=== PATIENT | male | born 1965 ===

== ENCOUNTER 2023-02-05 09:56 | Observation (INO) | payer OTHER, SELFPAY ==
[2023-02-05] VITALS (35 sets, daily range): BP systolic 117–148; BP diastolic 63–98; PULSE 65–89; RESP 16–18; TEMP 36.6–37.2; O2SAT 96–100; BMI 25.8; BMI 26.7
--- NOTE | 2023-02-05 10:26 | ED.NURSE ---
EKG completed and handed to
--- NOTE | 2023-02-05 10:37 | CRLHL7_ITS ---
For Patients: As a result of the Cures Act, medical imaging exams and procedure reports are released immediately into your electronic medical record. You may view this report before your referring provider. If you have questions, please contact your health care provider. INDICATION: SOB INDICATION: Shortness of breath. TECHNIQUE: Chest 2 views. COMPARISON: None FINDINGS: Cardiovascular and mediastinum: Heart size and vasculature are normal in caliber and appearance. Mediastinum is within normal limits. Lungs and pleural spaces: Lungs are clear. No sign of infiltrate or mass. No sign of pleural effusion. No pneumothorax. Bones and soft tissues: No significant findings. IMPRESSION: Lungs are clear. Dictated by Shayan Alvarado MD @ 02/05/2023 11:43:06 AM Dictated by: Shayan Alvarado MD @ 02/05/2023 11:43:15 (Electronically Signed)
--- NOTE | 2023-02-05 10:38 | CRLHL7_ITS ---
For Patients: As a result of the Century Cures Act, medical imaging exams and procedure reports are released immediately into your electronic medical record. You may view this report before your referring provider. If you have questions, please contact your health care provider. INDICATION: Acute stroke. TECHNIQUE: CTA neck with contrast bolus tracking, 3D angiographic rendering using maximum intensity projection (MIP) and images permanently archived. FINDINGS: There is no significant carotid artery stenosis or dissection. There is no significant vertebral artery stenosis or dissection. The soft tissues of the neck are within normal limits. Degenerative changes are noted in the cervical spine. IMPRESSION: No significant carotid or vertebral artery stenosis or dissection. Please note that all CT scans at this facility use dose modulation, iterative reconstruction, and/or weight-based dosing when appropriate to reduce radiation dose to as low as reasonably achievable. Dictated by John Kendall MD @ 02/05/2023 12:31:54 PM (Electronically Signed)
--- NOTE | 2023-02-05 10:38 | CRLHL7_ITS ---
For Patients: As a result of the Century Cures Act, medical imaging exams and procedure reports are released immediately into your electronic medical record. You may view this report before your referring provider. If you have questions, please contact your health care provider. INDICATION: Nonacute stroke-like symptoms TECHNIQUE: Noncontrast axial CT of the head. Coronal and sagittal reformats. Bone and soft tissue algorithms. COMPARISON: In 10/2017 FINDINGS: The ventricles and cortical sulci appear age-appropriate. No midline shift or mass effect. No acute intracranial hemorrhage or extra-axial fluid collection. Desir-white matter differentiation is grossly maintained. White matter attenuation is within normal limits. Intracranial vessels are unremarkable for technique. Midline structures are unremarkable. Bony calvarium appears grossly intact. Lobulated mucosal thickening throughout the left greater than right maxillary sinuses, with scattered mucosal thickening throughout the ethmoid air cells and left sphenoid sinus. No air-fluid level or mastoid effusion. Unremarkable orbits. IMPRESSION: No CT evidence of acute intracranial abnormality. Please note that all CT scans at this facility use dose modulation, iterative reconstruction, and/or weight-based dosing when appropriate to reduce radiation dose to as low as reasonably achievable. Dictated by Idalia Klein MD @ 02/05/2023 11:25:10 AM (Electronically Signed)
--- NOTE | 2023-02-05 10:38 | CRLHL7_ITS ---
For Patients: As a result of the Century Cures Act, medical imaging exams and procedure reports are released immediately into your electronic medical record. You may view this report before your referring provider. If you have questions, please contact your health care provider. INDICATION: Acute stroke. TECHNIQUE: CTA head with contrast bolus tracking, 3D angiographic rendering using maximum intensity projection (MIP) and images permanently archived. FINDINGS: There is normal opacification of the intracranial vasculature. There is no large vessel occlusion. No aneurysm is identified. IMPRESSION: Unremarkable head CTA. No large vessel occlusion. Please note that all CT scans at this facility use dose modulation, iterative reconstruction, and/or weight-based dosing when appropriate to reduce radiation dose to as low as reasonably achievable. Dictated by John Kendall MD @ 02/05/2023 12:30:25 PM (Electronically Signed)
--- NOTE | 2023-02-05 10:50 | ED_ITS ---
HPI - General Adult General Chief complaint: Unspecified Complaint, Adult Stated complaint: lightheaded, L arm pain/tingling Time Seen by Provider: 02/05/23 10:17 Source: patient Mode of arrival: ambulatory Limitations: no limitations History of Present Illness HPI narrative: 58-year-old male presenting today with concerns about not feeling well. Patient states that for the last couple of weeks he has felt a little lightheaded. He describes this as almost feeling like he is not clear. This sensation comes and goes and lingers anywhere from minutes to a couple of hours. He states that in the last 2 days this sensation has been more constant. Also on the last 2 days he has developed a mild discomfort over the left shoulder that radiates down the left arm all the way to the fingertips. Fingertips feel numb. States that a few days ago he had an episode over he felt like he was having a hard time getting words out, he does not think anyone noticed but he felt a difficult time with word finding. Every now and then when he is walking he feels a little bit off balance, has never fallen or ran into anything. He is unsure if he favors 1 side or the other. He has a very mild headache that is constant. Denies any ringing in his ears. No slurred speech. No weakness in any extremity. He denies any recent illness. Past medical history is significant for hyperlipidemia, patient is supposed to b e on Lipitor but has not taken it for a while. Denies any other medical problems. He does not use tobacco products. He does have a family history significant for coronary artery disease in multiple members of the family having heart attacks anywhere from their 40s to 60s. This includes his father, paternal grandfather, brother and a cousin. 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 Related Data Home Medications Medication Instructions Recorded Confirmed atorvastatin 20 mg tablet 20 mg PO DAILY 02/05/23 02/05/23 Allergies Allergy/AdvReac Type Severity Reaction Status Date / Time No Known Drug Allergies Allergy Verified 02/05/23 10:21 Review of Systems Status of ROS: Reports: 10 or more systems reviewed and unremarkable except as noted in History and below PFSH PFS Social History Smoking Status: Never smoker Non-prescribed substance use: denies use Exam Narrative: Exam Narrative: Well-nourished well-developed patient in no acute distress. Alert and oriented. Answers questions appropriately. Mood and affect are appropriate. Thoughts are goal oriented and rational. No tangential or magical thinking noted. Patient speaks in full sentences without needing to catch their breath. HEENT: Normocephalic atraumatic. Pupils are equally round reactive to light. Extraocular muscles are intact. Conjunctivae are moist without any icterus noted. Moist mucous membranes. Posterior pharynx is normal. Neck is soft without any lymphadenopathy or thyromegaly. No masses are appreciated. Cardiovascular: Heart is regular rate and rhythm S1 and S2 are present without any murmurs. Lungs: Clear to auscultation bilaterally no wheezes rhonchi or rales are appreciated. Patient takes deep breaths without any discomfort. Abdomen: Soft and nontender nondistended with normal bowel sounds. No guarding or rebound. No masses or organomegaly appreciated. Extremities: Bilateral lower extremities are without edema. Normal DP and PT pulses. Skin: Well perfused without any obvious rashes. Strength is 5/5 of the upper and lower extremities. Reflexes are 2+ and symmetric at the knees. Romberg sign is negative. Cranial nerves 3-12 are normal. There is no nystagmus either horizontally or vertically. Gait is normal. Const: Vital Signs, click to edit/add: Vital Signs - 24 hr 02/05/23 10:21 02/05/23 10:26 02/05/23 10:30 Temperature 99 F Pulse Rate 73 89 Pulse Rate [Pulse Oximeter] 80 Respiratory Rate 18 Blood Pressure Blood Pressure [Ri ght Upper Arm] 141/98 H Pulse Oximetry 100 99 98 Oxygen Delivery Me thod Room Air 02/05/23 10:32 02/05/23 10:37 02/05/23 10:55 Temperature Pulse Rate 88 79 Pulse Rate [Pulse Oximeter] Respiratory Rate Blood Pressure 148/91 H Blood Pressure [Ri ght Upper Arm] Pulse Oximetry 99 97 97 Oxygen Delivery Pa thod 02/05/23 11:11 02/05/23 11:15 02/05/23 11:30 Temperature Pulse Rate 79 74 66 Pulse Rate [Pulse Oximeter] Respiratory Rate Blood Pressure Blood Pressure [Ri ght Upper Arm] Pulse Oximetry 98 97 97 Oxygen Delivery Pa thod 02/05/23 11:32 02/05/23 11:45 02/05/23 12:00 Temperature Pulse Rate 68 74 69 Pulse Rate [Pulse Oximeter] Respiratory Rate Blood Pressure 126/78 Blood Pressure [Ri ght Upper Arm] Pulse Oximetry 97 98 99 Oxygen Delivery Me thod 02/05/23 12:03 02/05/23 12:15 02/05/23 12:30 Temperature Pulse Rate 67 70 67 Pulse Rate [Pulse Oximeter] Respiratory Rate Blood Pressure 117/96 H Blood Pressure [Ri ght Upper Arm] Pulse Oximetry 97 97 98 Oxygen Delivery Me thod 02/05/23 12:32 02/05/23 12:45 02/05/23 13:00 Temperature Pulse Rate 73 70 74 Pulse Rate [Pulse Oximeter] Respiratory Rate Blood Pressure 119/91 H Blood Pressure [Ri ght Upper Arm] Pulse Oximetry 97 97 97 Oxygen Delivery Me thod 02/05/23 13:02 02/05/23 13:15 02/05/23 13:30 Temperature Pulse Rate 73 69 79 Pulse Rate [Pulse Oximeter] Respiratory Rate Blood Pressure 123/87 Blood Pressure [Ri ght Upper Arm] Pulse Oximetry 96 96 97 Oxygen Delivery Me thod 02/05/23 13:31 02/05/23 13:45 Temperature Pulse Rate 75 83 Pulse Rate [Pulse Oximeter] Respiratory Rate Blood Pressure 127/83 Blood Pressure [Ri ght Upper Arm] Pulse Oximetry 98 96 Oxygen Delivery Me thod Course Course ED Course: Life-threatening Differential diagnosis includes at this time: Stroke-like symptoms, coronary artery disease, spinal lesion. Dehydration, electrolyte abnormality, thyroid dysfunction, shingles could also potentially cause similar symptoms. EKG, read by me, shows normal sinus rhythm with a rightward access, pulse 86. Head CT followed by head CTA and neck CTA were unremarkable. Blood work was unremarkable aside from mild anemia with a hemoglobin of 12.5. I did consult with Neurology, Dr. Moe at [facility]. We discussed follow-up testing which would include a brain and cervical spine MRI. We discussed outpatient versus inpatient testing: [place] that outpatient testing would take too long given the fact that his symptoms have been progressing over the last 2-3 days. [place] the safest course of action would be to admit the patient and have the imaging done the following day. This way we can also monitor if his symptoms progress over the next 24 hours. Vital Signs Vital signs: Initial Vital Signs Temperature 99 F 02/05/23 10:21 Temperature Source Temporal Artery Scan 02/05/23 10:21 Pulse Rate 80 02/05/23 10:21 Respiratory Rate 18 02/05/23 10:21 Blood Pressure 141/98 H 02/05/23 10:21 Blood Pressure Mean 112 H 02/05/23 10:21 Pulse Oximetry 100 02/05/23 10:21 Oxygen Delivery Method Room Air 02/05/23 10:21 Vital Signs Temperature 99 F 02/05/23 10:21 Pulse Rate 80 02/05/23 10:21 Respiratory Rate 18 02/05/23 10:21 Blood Pressure 141/98 H 02/05/23 10:21 Pulse Oximetry 100 02/05/23 10:21 Oxygen Delivery Method Room Air 02/05/23 10:21 Temperature 99 F 02/05/23 10:21 Pulse Rate 83 02/05/23 13:45 Respiratory Rate 18 02/05/23 10:21 Blood Pressure 127/83 02/05/23 13:31 Pulse Oximetry 96 02/05/23 13:45 Oxygen Delivery Method Room Air 02/05/23 10:21 Medical Decision Making MDM Narrative Medical decision making narrative: 58-year-old male with stroke-like symptoms. differential diagnosis at this time include stroke, inflammatory disease, Guillain-[place], cervical spine lesion. Patient will be admitted at this time for further management and brain and cervical spine MRI in the morning. Patient also has a slightly low hemoglobin 12.5. Lab Data Lab results reviewed: Yes I reviewed the patient's lab results Labs: Lab Results 02/05/23 02/05/23 Range/Units 10:54 11:58 WBC 4.09 L (4.50-11.00) K/uL RBC 4.61 (4.30-5.90) m/uL Hgb 12.5 L (13.5-17.5) gm/dL Hct 38.5 (37.0-53.0) % MCV 84 (80-100) fL MCH 27 (26-34) pg MCHC 33 (32-36) gm/dL RDW Coeff of Anna 13.7 (11.5-15.5) % Plt Count 252 (140-440) K/uL Neut % (Auto) 63.5 (42.0-72.0) % Lymph % (Auto) 22.5 (20-44) % [place] % (Auto) 9.3 (0.0-11.0) % Eos % (Auto) 3.7 (0.0-7.0) % Baso % (Auto) 1.0 (0.0-3.0) % Neut # (Auto) 2.60 (1.7-7.0) K/uL Lymph # (Auto) 0.90 (0.90-2.90) K/uL [place] # (Auto) 0.40 (0.00-0.90) K/UL Eos # (Auto) 0.20 (0.00-0.50) K/uL Baso # (Auto) 0.00 (0.00-0.30) K/uL Abs Immat Gran (auto) 0.00 (0.00-0.30) K/uL Imm/Tot Granulo (auto) 0.0 % Sodium 139 (135-149) mmol/L Potassium 3.8 (3.6-5.1) mmol/L Chloride 107 (96-114) mmol/L Carbon Dioxide 25 (20-32) mmol/L Anion Gap 7 (7-15) mEq/L BUN 12 (7-30) mg/dL Creatinine 0.7 (0.5-1.5) mg/dL Estimated Creat Clear 105.07 Estimated GFR 107 ml/min Glucose 98 (60-115) mg/dL Calcium 8.9 (8.4-10.6) mg/dL Total Bilirubin 0.5 (0.1-1.5) mg/dL Direct Bilirubin 0.0 (0.0-0.5) mg/dL AST 35 (12-35) U/L ALT 21 (4-50) U/L Alkaline Phosphatase 49 (40-150) U/L Troponin I < 0.01 L (0.01-0.04) ng/mL C-Reactive Protein < 0.5 L (0.5-1.0) mg/dL Total Protein 7.4 (6.0-8.3) g/dL Albumin 4.2 (3.3-5.0) g/dL TSH 0.710 (0.270-4.20) uIU/mL Urine Color Yellow (Yellow) Urine Appearance Clear (Clear) Urine pH 7.0 (5.0-8.5) Ur Specific Taylor 1.015 (1.000-1.030) Urine Protein Negative (Negative) Urine Glucose (UA) Negative (Negative) Urine Ketones Negative (Negative) Urine Blood Negative (Negative) Urine Nitrite Negative (Negative) Urine Bilirubin Negative (Negative) Urine Urobilinogen 0.2 (0.2-1.0) Ur Leukocyte Esterase Negative (Negative) Urine RBC 0-2 (0-2) Urine WBC 0-2 (0-5) Ur Squamous Epith Cells None (None-Few) Urine Bacteria None (None) SARS-CoV-2 (PCR) Negative SARS-CoV-2 (Negative) Monoscreen Negative (Negative) POC Troponin I 0.00 L (0.01-0.04) ng/ml Imaging Data CT scan - head: Attestation: I have reviewed the pertinent imaging results. Radiologist's impression: Noncontrast axial CT of the head. Coronal and sagittal reformats. Bone and soft tissue algorithms. COMPARISON: In 10/2017 FINDINGS: The ventricles and cortical sulci appear age-appropriate. No midline shift or mass effect. No acute intracranial hemorrhage or extra-axial fluid collection. Desir-white matter differentiation is grossly maintained. White matter attenuation is within normal limits. Intracranial vessels are unremarkable for technique. Midline structures are unremarkable. Bony calvarium appears grossly intact. Lobulated mucosal thickening throughout the left greater than right maxillary sinuses, with scattered mucosal thickening throughout the ethmoid air cells and left sphenoid sinus. No air-fluid level or mastoid effusion. Unremarkable orbits. IMPRESSION: No CT evidence of acute intracranial abnormality. Chest x-ray: Attestation: I have reviewed the pertinent imaging results. Radiologist's impression: Chest 2 views. COMPARISON: None FINDINGS: Cardiovascular and mediastinum: Heart size and vasculature are normal in caliber and appearance. Mediastinum is within normal limits. Lungs and pleural spaces: Lungs are clear. No sign of infiltrate or mass. No sign of pleural effusion. No pneumothorax. Bones and soft tissues: No significant findings. IMPRESSION: Lungs are clear. CTA head: Attestation: I have reviewed the pertinent imaging results. Radiologist's impression: TECHNIQUE: CTA head with contrast bolus tracking, 3D angiographic rendering using maximum intensity projection (MIP) and images permanently archived. FINDINGS: There is normal opacification of the intracranial vasculature. There is no large vessel occlusion. No aneurysm is identified. IMPRESSION: Unremarkable head CTA. No large vessel occlusion. CTA neck: Attestation: I have reviewed the pertinent imaging results. Radiologist's impression: TECHNIQUE: CTA neck with contrast bolus tracking, 3D angiographic rendering using maximum intensity projection (MIP) and images permanently archived. FINDINGS: There is no significant carotid artery stenosis or dissection. There is no significant vertebral artery stenosis or dissection. The soft tissues of the neck are within normal limits. Degenerative changes are noted in the cervical spine. IMPRESSION: No significant carotid or vertebral artery stenosis or dissection. Discharge Plan Discharge Clinical Impression: Stroke-like symptoms Patient Disposition: Admitted As Observation Condition: Stable Prescriptions: No Action atorvastatin 20 mg tablet 20 mg PO DAILY Follow Up/Referrals: Ac Jackman MD [Primary Care Provider] -
[2023-02-05 11:06] LABS: Eosinophils Percent Auto 3.7 % (0.0-7.0); Hematocrit 38.5 % (37.0-53.0); Hemoglobin* 12.5 gm/dL (13.5-17.5); Lymphocytes Percent Auto 22.5 % (20-44); Mean Corpuscular HGB Conc 33 gm/dL (32-36); Mean Corpuscular Hemoglobin 27 pg (26-34); Mean Corpuscular Volume 84 fL (80-100); Monocytes Percent Auto 9.3 % (0.0-11.0); Neutrophils Percent Auto 63.5 % (42.0-72.0); Platelet Count* 252 K/uL (140-440); RDW Coefficient of Variation % 13.7 % (11.5-15.5); Red Blood Count 4.61 m/uL (4.30-5.90); White Blood Count* 4.09 K/uL (4.50-11.00)
[2023-02-05 11:09] LABS: Slide Review Reflex No
[2023-02-05 11:17] LABS: Mono Screen* Negative (Negative)
[2023-02-05 11:40] LABS: Albumin* 4.2 g/dL (3.3-5.0); Chloride* 107 mmol/L (96-114)
[2023-02-05 11:41] LABS: Potassium* 3.8 mmol/L (3.6-5.1); Sodium* 139 mmol/L (135-149)
[2023-02-05 11:42] LABS: SARS PCR* Negative SARS-CoV-2 (Negative)
[2023-02-05 11:43] LABS: Creatinine* 0.7 mg/dL (0.5-1.5); Est. Creatinine Clearance* 105.07; Estimated Glomerular Filt Rate 107 ml/min
[2023-02-05 11:44] LABS: Alanine Aminotransferase* 21 U/L (4-50); Alkaline Phosphatase* 49 U/L (40-150); Anion Gap 7 mEq/L (7-15); Aspartate Amino Transferase* 35 U/L (12-35); Bilirubin Total* 0.5 mg/dL (0.1-1.5); Blood Urea Nitrogen* 12 mg/dL (7-30); Calcium* 8.9 mg/dL (8.4-10.6); Carbon Dioxide* 25 mmol/L (20-32); Glucose* 98 mg/dL (60-115); Total Protein* 7.4 g/dL (6.0-8.3)
[2023-02-05 11:47] LABS: C Reactive Protein* < 0.5 mg/dL (0.5-1.0)
[2023-02-05 12:06] LABS: Appearance Urine Clear (Clear); Bilirubin Urine Negative (Negative); Blood Urine Negative (Negative); Color Urine Yellow (Yellow); Glucose Urine Negative (Negative); Ketones Urine Negative (Negative); Leukocyte Esterase Urine Negative (Negative); Nitrite Urine Negative (Negative); Protein Urine Negative (Negative); Specific Gravity Urine 1.015 (1.000-1.030); Urobilinogen Urine 0.2 (0.2-1.0)
[2023-02-05 12:13] LABS: Troponin I* < 0.01 ng/mL (0.01-0.04)
[2023-02-05 12:14] LABS: RBC Urine 0-2 (0-2); WBC Urine 0-2 (0-5)
--- NOTE | 2023-02-05 15:30 | PM.IMHP1 ---
Hospitalist- H&P: HPI History of Present Illness Time Seen by Provider: 14:45 Date Seen: 02/05/23 Chief complaint: lightheaded, L arm pain/tingling Narrative: Alec Mosher is a 58 year old man who presents with escalating intermittent left shoulder discomfort radiating down to left hand with numbness for the past couple days, in the setting of him having episodes of lightheadedness often on for the past 4 weeks. Has had no recent trauma or injury. 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 Has had no loss of function of his left upper extremity or anything else. Regarding the lightheaded mid he has had this for the better part of the last 4 weeks often on. Seems to be getting more common and lasts longer. Feels like he is off balance when he walks at times although he has had no falls. Acknowledges becoming more anxious and frightened about this condition. As I review his past medical history is had similar complaints in the past. He and his acknowledge a lot of stress in his life related to his job as well as the fact that his 's health has been challenging over the last 1-2 years. In our emergency department CT scan of head was unremarkable. CT angiogram of head and neck or also unremarkable. Discussion undertaken with neurologist who recommended admission for observation and obtaining MRI of head and neck tomorrow if possible. Review of Systems Status of ROS: Reports: 10 or more systems reviewed and unremarkable except as noted in History and below Narrative: For the last couple of years he has been working a position which just ordinarily filled by 2 people. This has been difficult for him. His during the same interim of time has had multiple challenges with her physical health. He has been more anxious about these various stressors in his life. No recent travel, injury, blood loss of any sort. No recent fevers, rigors, diaphoresis. No recent myalgias or arthralgias. Denies dyspnea at rest, paroxysmal nocturnal dyspnea, orthopnea. Denies chest heaviness, pressure, tightness, or pain. No syncope or near syncope. Denies abdominal discomforts, diarrhea constipation. Denies dyspepsia, dysphagia, odynophagia. Denies cough, or URI symptoms. Denies any other focal motor neurologic deficits. [facility] Medical History (Updated 02/05/23 @ 15:46 by Ck Cabello MD) Vitamin D deficiency ?E55.9 - Vitamin D deficiency, unspecified (ICD-10) Chronic insomnia ?F51.04 - Psychophysiologic insomnia (ICD-10) History of muscle pain ?Z87.39 - Personal history of other diseases of the musculoskeletal system and connective tissue (ICD-10) History of joint pain ?Z87.39 - Personal history of other diseases of the musculoskeletal system and connective tissue (ICD-10) Family history of coronary artery disease ?Z82.49 - Family history of ischemic heart disease and other diseases of the circulatory system (ICD-10) Bulging lumbar disc ?M51.36 - Other intervertebral disc degeneration, lumbar region (ICD-10) Hyperlipidemia ?E78.5 - Hyperlipidemia, unspecified (ICD-10) Family History (Updated 02/05/23 @ 15:26 by Ck Cabello MD) Paternal Grandfather Coronary artery disease Father Coronary artery disease Brother Coronary artery disease High cholesterol Mother Coronary artery disease Social History (Updated 02/05/23 @ 15:30 by Ck Cabello MD) Narrative: . Lives with . No children. 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 Designates , Loreta, as power of criminal defense attorney for health should that be required. Full resuscitation efforts in event of cardiopulmonary demise but does not want to be kept alive in a vegetative state. Dr. Ac Jackman is his primary technical healthcare consultant. Smoking Status: Never smoker Non-prescribed substance use: denies use Meds Home Medications and Allergies Home Medications Medication Instructions Recorded Confirmed Type atorvastatin 20 mg tablet 20 mg PO DAILY 02/05/23 02/05/23 History Allergies Allergy/AdvReac Type Severity Reaction Status Date / Time No Known Drug Allergies Allergy Verified 02/05/23 10:21 Exam Narrative: Exam Narrative: I examine him in the emergency department. He appears comfortable and in no acute distress. Vision and hearing are normal. Alert, oriented to self, place, time, situation. From the, articulate, cooperative. No focal motor neurologic deficits in upper lower extremities. Full strength. Normal rapid alternating movements. Good balance. Independent in transfer, station, and gait. No tremor, asterixis, or ataxia. Cranial nerves 3-12 grossly normal. Pupils equally round and reactive to light and accommodation. Extraocular muscles are intact. Conjugate vision. No icterus. Neck is supple. Midline trachea. No head and neck lymphadenopathy. No JVD, hepatojugular reflux, or carotid bruits. Lungs are clear to auscultation without wheezing, rhonchi, or rales. Heart tones with regular rhythm, normal S1-S2, without murmur, gallop, or rub. Abdomen with active bowel sounds, soft, nontender. No organomegaly masses. Independent transfer, station, and gait. Full range of motion of all joints. Const: Vital Signs, click to edit/add: Vital Signs - 24 hr 02/05/23 10:21 02/05/23 10:26 02/05/23 10:30 Temperature 99 F Pulse Rate 73 89 Pulse Rate [Pulse Oximeter] 80 Respiratory Rate 18 Blood Pressure Blood Pressure [Ri ght Upper Arm] 141/98 H Pulse Oximetry 100 99 98 Oxygen Delivery Me thod Room Air 02/05/23 10:32 02/05/23 10:37 02/05/23 10:55 Temperature Pulse Rate 88 79 Pulse Rate [Pulse Oximeter] Respiratory Rate Blood Pressure 148/91 H Blood Pressure [Ri ght Upper Arm] Pulse Oximetry 99 97 97 Oxygen Delivery Me thod 02/05/23 11:11 02/05/23 11:15 02/05/23 11:30 Temperature Pulse Rate 79 74 66 Pulse Rate [Pulse Oximeter] Respiratory Rate Blood Pressure Blood Pressure [Ri ght Upper Arm] Pulse Oximetry 98 97 97 Oxygen Delivery Me thod 02/05/23 11:32 02/05/23 11:45 02/05/23 12:00 Temperature Pulse Rate 68 74 69 Pulse Rate [Pulse Oximeter] Respiratory Rate Blood Pressure 126/78 Blood Pressure [Ri ght Upper Arm] Pulse Oximetry 97 98 99 Oxygen Delivery Me thod 02/05/23 12:03 02/05/23 12:15 02/05/23 12:30 Temperature Pulse Rate 67 70 67 Pulse Rate [Pulse Oximeter] Respiratory Rate Blood Pressure 117/96 H Blood Pressure [Ri ght Upper Arm] Pulse Oximetry 97 97 98 Oxygen Delivery Me thod 02/05/23 12:32 02/05/23 12:45 02/05/23 13:00 Temperature Pulse Rate 73 70 74 Pulse Rate [Pulse Oximeter] Respiratory Rate Blood Pressure 119/91 H Blood Pressure [Ri ght Upper Arm] Pulse Oximetry 97 97 97 Oxygen Delivery Me thod 02/05/23 13:02 02/05/23 13:15 02/05/23 13:30 Temperature Pulse Rate 73 69 79 Pulse Rate [Pulse Oximeter] Respiratory Rate Blood Pressure 123/87 Blood Pressure [Ri ght Upper Arm] Pulse Oximetry 96 96 97 Oxygen Delivery Me thod 02/05/23 13:31 02/05/23 13:45 02/05/23 14:00 Temperature Pulse Rate 75 83 76 Pulse Rate [Pulse Oximeter] Respiratory Rate Blood Pressure 127/83 Blood Pressure [Ri ght Upper Arm] Pulse Oximetry 98 96 98 Oxygen Delivery Me thod 02/05/23 14:02 02/05/23 14:15 02/05/23 14:30 Temperature Pulse Rate 82 85 88 Pulse Rate [Pulse Oximeter] Respiratory Rate Blood Pressure 135/85 Blood Pressure [Ri ght Upper Arm] Pulse Oximetry 97 96 98 Oxygen Delivery Me thod 02/05/23 14:32 02/05/23 14:56 02/05/23 15:00 Temperature Pulse Rate 79 79 89 Pulse Rate [Pulse Oximeter] Respiratory Rate Blood Pressure 139/94 H Blood Pressure [Ri ght Upper Arm] Pulse Oximetry 98 96 97 Oxygen Delivery Me thod Documenting provider has reviewed patient's vital signs: yes Hospitalist - H&P: Result Labs Labs: Short CBC 02/05/23 Range/Units 10:54 WBC 4.09 L (4.50-11.00) K/uL Hgb 12.5 L (13.5-17.5) gm/dL Hct 38.5 (37.0-53.0) % Plt Count 252 (140-440) K/uL BMP 02/05/23 10:54 Sodium 139 Potassium 3.8 Chloride 107 Carbon Dioxide 25 BUN 12 Creatinine 0.7 Glucose 98 Calcium 8.9 Cardiac Enzymes 02/05/23 Range/Units 10:54 Troponin I < 0.01 L (0.01-0.04) ng/mL Liver Function 02/05/23 Range/Units 10:54 Total Bilirubin 0.5 (0.1-1.5) mg/dL Direct Bilirubin 0.0 (0.0-0.5) mg/dL AST 35 (12-35) U/L ALT 21 (4-50) U/L Alkaline Phosphatase 49 (40-150) U/L Albumin 4.2 (3.3-5.0) g/dL Urine 02/05/23 Range/Units 11:58 Urine Color Yellow (Yellow) Urine Appearance Clear (Clear) Urine pH 7.0 (5.0-8.5) Ur Specific [place] 1.015 (1.000-1.030) Urine Protein Negative (Negative) Urine Glucose (UA) Negative (Negative) ECG ECG interpretation date: 02/05/23 Prior ECG tracings: not available for review Interpretation: Normal sinus rhythm without ischemic changes. Imaging CT scan - head: Attestation: I have reviewed the pertinent imaging results. Radiologist's impression: No acute abnormalities noted. CT angiogram of head also without any acute abnormalities. CT angiogram of neck also without any acute abnormalities. Assessment and Plan Assessment and plan (1) Dizziness, nonspecific: Problem comment: - our emergency department physician discussed case with neurologist who recommended admission for observation, MRI of head and cervical spine in the morning, and appropriate follow-up. Status: Acute (2) Left shoulder pain: Problem comment: - our emergency department physician discussed case with neurologist who recommended admission for observation, MRI of the cervical spine in the morning, and appropriate follow-up. - will obtain x-ray of the affected left shoulder. Status: Acute (3) Numbness and tingling of left hand: Problem comment: - see comments under left shoulder pain entry above Status: Acute Plan 1. I reviewed with patient and his . Answered their questions. 2. Recommended admission for observation which they are agreeable to. 3. Telemetry, neuro checks q.4, restart atorvastatin, initiate aspirin therapy. 4. Will hold off on physical therapy, occupational therapy, or speech therapy for now. 5. Patient agreeable to above stated plans and recommendations.
--- NOTE | 2023-02-05 15:54 | CRLHL7_ITS ---
For Patients: As a result of the Cures Act, medical imaging exams and procedure reports are released immediately into your electronic medical record. You may view this report before your referring provider. If you have questions, please contact your health care provider. INDICATION: Pain. TECHNIQUE: Three views. FINDINGS: There is no radiographically evident acute/displaced fracture/dislocation. Bone density appears normal. There is no intrinsic bone lesion identified. Dictated by Benitez Nuñez MD @ 02/05/2023 4:54:01 PM (Electronically Signed)
--- NOTE | 2023-02-05 18:56 | PC.NURSE ---
shift note: pt admit from ED @ 1515 via WC. pt up indept in ramso and room. pt stated upon admission slightly lightheaded when standing. vss stable. pt IV to LT AC intact. Pt denies pain. Pt rt eye jumping with movement side to side. Pt denies lt hand or shoulder numbness at admit.
[2023-02-05] MEDS: ACETAMINOPHEN 325 MG TABLET 650 MG PO (20:13)
[2023-02-05] MEDS: ENOXAPARIN 40 MG/0.4 ML INJ SUBCUT (20:13)
[2023-02-05] MEDS: SODIUM CHLORIDE 0.9 % (FLUSH) 10 ML SYRINGE 5 ML IVF (20:14)
[2023-02-05] MEDS: MELATONIN 3 MG TABLET 9 MG PO (22:08)
[2023-02-06 04:11] VITALS: BP 122/87; PULSE 73; RESP 16; TEMP 36.7; O2SAT 98
--- NOTE | 2023-02-06 05:21 | PC.NURSE ---
[id number]: Patient pleasant and cooperative. Reports mild headache at beginning of shift. Tylenol administered for relief. Neuros unremarkable. Denies dizziness, N/V. Independent in room. Eating and voiding.
[2023-02-06 07:01] LABS: Hemoglobin* 12.4 gm/dL (13.5-17.5)
[2023-02-06 07:06] VITALS: PULSE 80
[2023-02-06 07:07] LABS: Iron* 70 ug/dL (49-181)
[2023-02-06 07:16] LABS: Percent Iron Saturation 18 % (20-50); Total Iron Binding Capacity 392 ug/dL (261-462)
[2023-02-06 07:29] VITALS: BP 132/91; PULSE 73; RESP 18; TEMP 36.5; O2SAT 96
[2023-02-06 07:59] LABS: Vitamin B12* 392 pg/mL (243-894)
[2023-02-06] MEDS: ATORVASTATIN 10 MG TABLET 20 MG PO (08:59)
[2023-02-06] MEDS: ASPIRIN 81 MG TABLET EC PO (09:00)
[2023-02-06] MEDS: SODIUM CHLORIDE 0.9 % (FLUSH) 10 ML SYRINGE 5 ML IVF (09:00)
--- NOTE | 2023-02-06 11:02 | NUTR.NU ---
RDN with MD consult for hyperlipidemia and family history of CAD. Weight: no recent weight history. BMI is overweight at 26.0 kg/m2. Current diet order: low fat/low cholesterol. Meal intake is adequate, 100% x 2. RDN visited with patient whom reports he does not follow a diet at home, however he tries to hoose healthier foods including fruits, vegetables and limiting red meats. RDN offered diet education, however patient refused at this time. Patient did accept educational materials (Heart Heathy Nutrition Therapy and Heart Healthy Label Reading Tips from [employer]). RDN encouraged patient to let staff know if he has any questions or concerns. RDN's contact information was provided and patient was encouraged to call with questions.
--- NOTE | 2023-02-06 11:03 | REH.PT ---
Pt with no concerns for PT at this time. Reports that shoulder pain is improving and isn't that bad. IND with mobility. No balance concerns. Pt will be undergoing MRI this PM. If neg, recommend OP PT to address shoulder pain.
[2023-02-06 11:15] VITALS: BP 131/79; PULSE 71; RESP 18; TEMP 36.9; O2SAT 97
--- NOTE | 2023-02-06 12:16 | PM.DS1 ---
DS: Providers Provider Date Seen: 02/06/23 Date of admission: 02/05/23 15:21 Primary care physician: Ac Jackman MD Admitting Clinician: Michelle Ballard MD Attending Physician on discharge: Michelle Ballard MD Date of Discharge: 02/06/23 DS: Diagnosis Discharge Diagnosis (1) Left shoulder pain: Status: Acute Problem details: Left-handed patient reports intermittent left shoulder and left arm discomfort over the past few days. Nothing obviously triggers this and nothing obviously relieves it. - our emergency department physician discussed case with neurologist who recommended admission for observation, MRI of the cervical spine in the morning, and appropriate follow-up. He has had no left upper extremity weakness. He does note that he gets tingling in his left hand fingertips. (2) Dizziness, nonspecific: Status: Acute Problem details: Patient reports dizziness which he describes as both imbalance as well as lightheadedness that is intermittent over the last month or so. Nothing obviously triggers it and nothing relieves it. He does note that he has had orthostatic lightheadedness when he wakes up in the middle of the night and it feels a little bit like that but it occurs even when he has no change in position. - our emergency department physician discussed case with neurologist who recommended admission for observation, MRI of head and cervical spine in the morning, and appropriate follow-up. (3) Numbness and tingling of left hand: Status: Acute Problem details: Primary sensation is of aching discomfort in his left arm down to his hand but he also reports paresthesias in his fingertips (4) Iron deficiency anemia: Status: Acute Problem details: Hemoglobin in clinic last week was 12.4. Hemoglobin here on admission is 12.5. Normocytic with MCV of 84. Iron studies show a mildly low TIBC of 18. Normal TIBC is above 20. He is not aware of any melena or hematochezia. He does donate blood every 3 months. He tells me that in the past he has had borderline hemoglobins and they have been reluctant to take his blood. He had a normal colonoscopy 6 years ago with a recommended follow-up in 10 years. The report from that colonoscopy says his colon was tortuous. (5) Cervical disc disease: Status: Acute Problem details: No current neurologic deficits but may be a cause of recent left arm pain. DS: Summary Hospital Course Hospital Course: 58-year-old male admitted to the hospital with 1 month history of intermittent dizziness/lightheadedness/imbalance and a few day history of left arm discomfort associated with some tingling in his fingertips. Initial evaluation with CT of the head and CTA was unremarkable. Radiographs of the shoulder also unremarkable. Physical examination is also normal. MRI of the cervical spine shows multilevel disc degenerative disease. Brain MRI is normal. He has been asymptomatic since admission. He was incidentally noted to have a hemoglobin of 12.5 with mildly low TIBC of 18. Status at Discharge Functional status at discharge: independent ambulation Overall status at discharge: patient is back to baseline Time Spent with Patient Time attestation: Total time spent providing and/or coordinating discharge services: 50 minutes Exam Narrative: Exam Narrative: He is alert, mildly anxious but in otherwise no distress. Head is normal. Eyes normal. Oropharynx normal. Neck is supple without mass or adenopathy. Full active range of motion without any discomfort. Respirations are clear to auscultation. Breathing is unlabored. Cardiovascular: S1, S2, regular rate and rhythm. No murmur gallop or rub. Abdomen is soft without tenderness or mass. Eyes are normal. Extraocular movements are full. Pupils are equal round reactive to light. Visual woodson are intact. He has no facial asymmetry. Oropharynx is normal. Tongue is midline. Upper extremities with normal strength testing bilaterally including yoga teacher strength, wrist flexion and extension, elbow flexion and extension, shoulder flexion and extension, shoulder internal and external rotation in adduction and shoulder abduction bilaterally. He has no discomfort with passive range of motion and full range of motion in flexion and extension, internal and external rotation, adduction and abduction. Intact pulses and sensation. Lower extremity with full strength at 5/5 in hip flexion, knee flexion and extension, ankle dorsiflexion and plantar flexion. Romberg is normal. Tandem gait is mildly unsteady. [id number] is normal. Const: Vital Signs, click to edit/add: Vital Signs - 24 hr 02/05/23 12:30 02/05/23 12:32 02/05/23 12:45 Temperature Pulse Rate 67 73 70 Pulse Rate [Pulse Oximeter] Pulse Rate [Right Brachial] Respiratory Rate Blood Pressure 119/91 H Blood Pressure [Ri ght Arm] Pulse Oximetry 98 97 97 Oxygen Delivery Me thod 02/05/23 13:00 02/05/23 13:02 02/05/23 13:15 Temperature Pulse Rate 74 73 69 Pulse Rate [Pulse Oximeter] Pulse Rate [Right Brachial] Respiratory Rate Blood Pressure 123/87 Blood Pressure [Ri ght Arm] Pulse Oximetry 97 96 96 Oxygen Delivery Me thod 02/05/23 13:30 02/05/23 13:31 02/05/23 13:45 Temperature Pulse Rate 79 75 83 Pulse Rate [Pulse Oximeter] Pulse Rate [Right Brachial] Respiratory Rate Blood Pressure 127/83 Blood Pressure [Ri ght Arm] Pulse Oximetry 97 98 96 Oxygen Delivery Me thod 02/05/23 14:00 02/05/23 14:02 02/05/23 14:15 Temperature Pulse Rate 76 82 85 Pulse Rate [Pulse Oximeter] Pulse Rate [Right Brachial] Respiratory Rate Blood Pressure 135/85 Blood Pressure [Ri ght Arm] Pulse Oximetry 98 97 96 Oxygen Delivery Me thod 02/05/23 14:30 02/05/23 14:32 02/05/23 14:56 Temperature Pulse Rate 88 79 79 Pulse Rate [Pulse Oximeter] Pulse Rate [Right Brachial] Respiratory Rate Blood Pressure 139/94 H Blood Pressure [Ri ght Arm] Pulse Oximetry 98 98 96 Oxygen Delivery Me thod 02/05/23 15:00 02/05/23 15:27 02/05/23 15:27 Temperature 98 F Pulse Rate 89 Pulse Rate [Pulse Oximeter] Pulse Rate [Right Brachial] 74 Respiratory Rate 18 18 Blood Pressure Blood Pressure [Ri ght Arm] 125/84 Pulse Oximetry 97 98 100 Oxygen Delivery Me thod Room Air Room Air 02/05/23 15:50 02/05/23 19:59 02/05/23 22:11 Temperature 98.4 F 98.4 F Pulse Rate 77 Pulse Rate [Pulse Oximeter] Pulse Rate [Right Brachial] 73 69 Respiratory Rate 18 16 Blood Pressure Blood Pressure [Ri ght Arm] 118/63 122/88 Pulse Oximetry 98 96 Oxygen Delivery Me thod Room Air Room Air 02/05/23 23:00 02/05/23 23:00 02/06/23 04:11 Temperature 98.1 F Pulse Rate 65 Pulse Rate [Pulse Oximeter] Pulse Rate [Right Brachial] 73 Respiratory Rate 16 16 Blood Pressure Blood Pressure [Ri ght Arm] 122/87 Pulse Oximetry 96 98 Oxygen Delivery Me thod Room Air Room Air 02/06/23 07:06 02/06/23 07:29 02/06/23 07:29 Temperature 97.7 F Pulse Rate 80 Pulse Rate [Pulse Oximeter] 73 Pulse Rate [Right Brachial] Respiratory Rate 18 18 Blood Pressure Blood Pressure [Ri ght Arm] 132/91 H Pulse Oximetry 96 96 Oxygen Delivery Me thod Room Air Room Air Documenting provider has reviewed patient's vital signs: yes DS: Data Data Completed and Pending Labs on day of discharge: Labs from last 24 hours 02/06/23 02/05/23 06:03 10:54 Hgb 12.4 L Iron 70 TIBC 392 % Saturation 18 L Vitamin B12 392 RBC Fol Ana for Serum Pending TSH 0.710 Preliminary micro results at discharge 02/05/23 11:58 Urine Culture - Preliminary Urine,Clean Catch NO GROWTH AFTER 24 HOURS Imaging MR Brain: Radiologist's impression: INDICATION: Dizziness. TECHNIQUE: Multisequence multiplanar MRI of the head without contrast. COMPARISON: Correlated with CT head dated 11/14/2017. FINDINGS: Diffusion-weighted imaging demonstrates no evidence of acute or subacute ischemia. Few scattered foci of periventricular and subcortical white matter hyperintensity, nonspecific, typical chronic small vessel ischemic changes. The ventricles are normal in size. Flow voids of the larger intracranial arteries are patent. Bone marrow signal intensity of the calvarium is within normal limits. Orbits are unremarkable in appearance. Scattered paranasal sinus mucosal thickening and few mucosal polyps versus retention cysts in the left maxillary alveolar recess. IMPRESSION: 1. No acute intracranial abnormality. 2. Scattered paranasal sinus mucosal thickening and few mucosal polyps versus retention cysts in the left maxillary alveolar recess. Additional Comments Additional comments: MRI cervical spine INDICATION: Dizziness. TECHNIQUE: Multisequence multiplanar MRI of the head without contrast. COMPARISON: Correlated with CT head dated 11/14/2017. FINDINGS: Diffusion-weighted imaging demonstrates no evidence of acute or subacute ischemia. Few scattered foci of periventricular and subcortical white matter hyperintensity, nonspecific, typical chronic small vessel ischemic changes. The ventricles are normal in size. Flow voids of the larger intracranial arteries are patent. Bone marrow signal intensity of the calvarium is within normal limits. Orbits are unremarkable in appearance. Scattered paranasal sinus mucosal thickening and few mucosal polyps versus retention cysts in the left maxillary alveolar recess. IMPRESSION: 1. No acute intracranial abnormality. 2. Scattered paranasal sinus mucosal thickening and few mucosal polyps versus retention cysts in the left maxillary alveolar recess. Discharge Plan Discharge Disposition: Home, Self-Care Date of Admission: 02/05/23 15:21 Attending Provider on Discharge: Brien Mello Primary Care Provider: Ac Jackman Condition: Stable Anticipated Discharge Date/Time: 02/06/23 15:00 Discharge Medications: New ferrous sulfate 325 mg (65 mg iron) tablet,delayed release (DR/EC) 325 mg PO Q OTHER DAY Qty: 60 0RF Continued atorvastatin 20 mg tablet 20 mg PO DAILY Discharge Orders: Discharge Order (Routine); Ordered 02/06/23 Ordered By: Brien Mello Activity Level: No Restrictions Follow Up Appointments: Ac Jackman MD [Primary Care Provider] - (follow up in 2-3 weeks for iron deficiency anemia and cervical disc disease) Forms: [facility] Info Instructions
--- NOTE | 2023-02-06 15:02 | PC.NURSE ---
Pt alert and oriented. Pt independent in room. Pt had no complaints of pain, dizziness, N/V. Pt has MRI scheduled for noon. Pt?s at bedside. Pt?s IV removed catheter intact. Pt discharged home with .?
--- NOTE | 2023-02-06 15:54 | CRLHL7_ITS ---
For Patients: As a result of the Century Cures Act, medical imaging exams and procedure reports are released immediately into your electronic medical record. You may view this report before your referring provider. If you have questions, please contact your health care provider. INDICATION: Left arm/hand numbness. TECHNIQUE: Multisequence MRI of the cervical spine without contrast. COMPARISON: None available. FINDINGS: Normal alignment. Vertebral body heights are maintained. Bone marrow signal intensity is within normal limits. Multilevel intervertebral disc height loss is most pronounced at C5-C6 and C6-C7. The cervical spinal cord is normal in signal intensity. The paraspinal soft tissues are unremarkable. Evaluation of the individual levels demonstrates: C2-C3: No significant spinal canal or neural foraminal stenosis. C3-C4: No significant spinal canal stenosis. Mild left and moderate right neural foraminal narrowing from combined uncovertebral/facet arthrosis. C4-C5: No significant spinal canal or left neural foraminal narrowing. Mild right neural foraminal narrowing from combined uncovertebral/facet arthrosis. C5-C6: Mild-moderate spinal canal stenosis as sequela of a posterior disc osteophyte complex combined with ligamentum flavum hypertrophy. Mild-moderate left and moderate right neural foraminal narrowing from combined uncovertebral/facet arthrosis. C6-C7: Mild spinal canal stenosis the sequela of a posterior disc osteophyte complex. Moderate bilateral neural foraminal narrowing predominantly from uncovertebral spurring. C7-T1: No significant spinal canal or neural foraminal stenosis. IMPRESSION: 1. Moderate cervical spondylosis with intervertebral disc height loss most pronounced at C5-C6 and C6-C7. 2. At C3-C4, moderate right neural foraminal narrowing. 3. At C5-C6, mild-moderate spinal canal stenosis, mild-moderate left neural foraminal narrowing, and moderate right neural foraminal narrowing. 4. At C6-C7, mild spinal canal stenosis and moderate bilateral neural foraminal narrowing. Dictated by Kyaw Napoles MD @ 02/06/2023 12:59:54 PM (Electronically Signed)
--- NOTE | 2023-02-06 15:54 | CRLHL7_ITS ---
For Patients: As a result of the Century Cures Act, medical imaging exams and procedure reports are released immediately into your electronic medical record. You may view this report before your referring provider. If you have questions, please contact your health care provider. INDICATION: Dizziness. TECHNIQUE: Multisequence multiplanar MRI of the head without contrast. COMPARISON: Correlated with CT head dated 11/14/2017. FINDINGS: Diffusion-weighted imaging demonstrates no evidence of acute or subacute ischemia. Few scattered foci of periventricular and subcortical white matter hyperintensity, nonspecific, typical chronic small vessel ischemic changes. The ventricles are normal in size. Flow voids of the larger intracranial arteries are patent. Bone marrow signal intensity of the calvarium is within normal limits. Orbits are unremarkable in appearance. Scattered paranasal sinus mucosal thickening and few mucosal polyps versus retention cysts in the left maxillary alveolar recess. IMPRESSION: 1. No acute intracranial abnormality. 2. Scattered paranasal sinus mucosal thickening and few mucosal polyps versus retention cysts in the left maxillary alveolar recess. Dictated by Kyaw Napoles MD @ 02/06/2023 1:05:43 PM (Electronically Signed)
[2023-02-08 03:11] LABS: Folate, Serum 15.3 ng/mL (>=5.9)
== END 2023-02-06 14:56 | disposition home or self-care (01) ==
LOC: ED 14:28 → MEDSURG 02-06 11:36
PROVIDERS: Admitting Provider Internal Medicine; Emergency Provider Family Medicine; PCP Family Medicine; Visit Provider Family Medicine
DX: R42 Dizziness and giddiness (principal); M25.512 Pain in left shoulder; R20.0 Anesthesia of skin; R20.2 Paresthesia of skin; D50.9 Iron deficiency anemia, unspecified; M50.90 Cervical disc disorder, unspecified, unspecified cervical region
CPT/HCPCS: 36415; 70450; 70496; 70498; 70551; 71046; 72141; 73030; 80048; 80076; 81001; 82607; 82746; 83540; 83550; 84443; 84484; 85018; 85025; 86140; 86308; 87086; 87635; 93005; 94761; 96372; 97165; 99285; G0378; A9270; J1650; Q9967

== ENCOUNTER 2024-06-11 07:55 | Outpatient (CLI) | payer OTHER, SELFPAY | END 2024-06-11 07:56 | disposition home or self-care (01) | LOC: MRI 07:56 | PROVIDERS: PCP Family Medicine; Visit Provider Orthopaedic Surgery Sports Medicine | DX: M25.561 Pain in right knee (principal); S83.241A Other tear of medial meniscus, current injury, right knee, initial encounter; M92.521 Juvenile osteochondrosis of tibia tubercle, right leg | CPT/HCPCS: 73721 ==

== ENCOUNTER 2024-09-25 06:07 | Day surgery (SDC) | payer OTHER, SELFPAY ==
[2024-09-25] VITALS (15 sets, daily range): BP systolic 89–120; BP diastolic 61–75; PULSE 52–69; RESP 16; TEMP 36.2–36.6; O2SAT 95–100; BMI 25.2
[2024-09-25] MEDS: LACTATED RINGERS 1000 ML 1,000 ML 100 ML IV (06:40)
--- NOTE | 2024-09-25 07:18 | W.PM.H&PU ---
History & Physical Update History & Physical Update H&P Reviewed and patient assessed: No changes noted
[2024-09-25] MEDS: CEFAZOLIN 1 GM inj IVP (07:21)
--- NOTE | 2024-09-25 07:29 | P.ANES_ITS ---
Anesthesia Charges Start Date/Time Anesthesia Start Date: 09/25/24 Anesthesia Start Time: 07:12 Stop Date/Time Anesthesia Stop Date: 09/25/24 Anesthesia Stop Time: 08:02 Coding CPT Codes CPT Codes: ANESTH KNEE JOINT SURGERY - 02729 ([id number]) P1 - NORMAL HEALTHY PATIENT, QK - DIRECTOR FACILITIES MAINTENANCE 2-4 CNCRNT ANES PROC, QX - TEXTILE MACHINERY SALES REPRESENTATIVE [facility] W/ MED DIRECTION
--- NOTE | 2024-09-25 07:29 | W.ANESCHARGE ---
Anesthesia Charges Start Date/Time Anesthesia Start Date: 09/25/24 Anesthesia Start Time: 07:12 Stop Date/Time Anesthesia Stop Date: 09/25/24 Anesthesia Stop Time: 08:02 Coding CPT Codes CPT Codes: ANESTH KNEE JOINT SURGERY - 99515 ([id number]) P1 - NORMAL HEALTHY PATIENT, QK - ELECTRICIAN SHOP 2-4 CNCRNT ANES PROC, QX - NIGHT NURSE [facility] W/ MED DIRECTION
[2024-09-25] MEDS: ROPIVACAINE 0.5% 30 ML 150 MG INJECTION (07:51)
--- NOTE | 2024-09-25 07:53 | P.ORPRC_ITS ---
Procedure Note Date of procedure: 09/25/24 Procedure: PREOPERATIVE DIAGNOSIS: 1. Right knee medial meniscus tear POSTOPERATIVE DIAGNOSIS: 1. Right knee medial meniscus tear PROCEDURE: 1. Right knee arthroscopic partial medial meniscectomy SURGEON: Yovany Echevarria M.D. ABSORBER OPERATOR: Julio López PA-C. Of note, an real estate legal assistant was critical for this case to aid in patient positioning, knee manipulation, instrument exchange, and closure. ANESTHESIA: Spinal EBL: 2ml TOURNIQUET: 30 min at 300 torr COMPLICATIONS: None evident INDICATIONS: The patient is a pleasant 59-year-old male who has experienced right knee pain particularly with any twisting or turning. Physical exam was concerning for medial meniscus tear, this was confirmed on MRI. Additionally, attempted nonoperative management has been tried, and failed. Thus, surgery was recommended. FINDINGS: Complex tear posterior horn to midbody medial meniscus. Posterior root was otherwise intact. Grade 2 chondromalacia medial femoral condyle on the far lateral weight-bearing portion aspect. Grade 1 chondromalacia patella and trochlea as well as lateral compartment. Intact lateral meniscus. ACL and PCL intact robust. No loose bodies evident. DESCRIPTION OF PROCEDURE: After a thorough discussion of risks, benefits, and alternatives, the patient was brought to the operating room and placed upon the operating table. Induction of anesthesia was undertaken as previously noted. 1 g IV Ancef was administered within 1 hr of incision preoperatively. Appropriate time-out was performed identifying proper patient, site, and procedure. The right lower extremity was prepped and draped in the appropriate sterile fashion using ChloraPrep. The limb was exsanguinated and tourniquet inflated. Anterolateral and anteromedial portals were established with an 11 blade, and a diagnostic arthroscopy was performed. This identified the findings as noted above. Following the diagnostic arthroscopy, a partial medial menisectomy was performed with the combination of basket forceps and a motorized shaver. Following this, the meniscus was re-probed and found to be stable. Approximately 20-25% of the overall meniscus required resection. At this stage, the shaver was reinserted into the suprapatellar pouch and all remaining meniscal debris was evacuated. Instruments were removed, excess fluid was drained, and closure performed with 4-0 Monocryl with Steri-Strips. Dressings were applied, the tourniquet deflated, and the patient was awoken from anesthesia and transferred to the PACU in stable condition. PLAN: 1. Weightbear as tolerated operative extremity. Crutch / walker ambulation assistance PRN. 2. Ice, acetominophen and/or ibuprofen, and Oxycodone for pain as needed. 3. Knee range of motion and quad sets/straight leg raise regularly 4. Follow up with PA visit in 1-2 weeks for a wound check and possibly to initiate physical therapy.
--- NOTE | 2024-09-25 07:59 | P.ANES_ITS ---
Anesthesia Charges Start Date/Time Anesthesia Start Date: 09/25/24 Anesthesia Start Time: 07:12 Stop Date/Time Anesthesia Stop Date: 09/25/24 Anesthesia Stop Time: 08:02 Coding CPT Codes CPT Codes: ANESTH KNEE JOINT SURGERY - 04708 ([id number]) P1 - NORMAL HEALTHY PATIENT, QK - CLINICAL SECRETARY 2-4 CNCRNT ANES PROC, QX - SHROUDMAN [facility] W/ MED DIRECTION
--- NOTE | 2024-09-25 07:59 | W.ANESCHARGE ---
Anesthesia Charges Start Date/Time Anesthesia Start Date: 09/25/24 Anesthesia Start Time: 07:12 Stop Date/Time Anesthesia Stop Date: 09/25/24 Anesthesia Stop Time: 08:02 Coding CPT Codes CPT Codes: ANESTH KNEE JOINT SURGERY - 51812 ([id number]) P1 - NORMAL HEALTHY PATIENT, QK - SPINNER TENDER 2-4 CNCRNT ANES PROC, QX - LAND SALES AGENT [facility] W/ MED DIRECTION
--- NOTE | 2024-09-25 10:02 | SUR.PHASEII ---
Instructed patient to come to emergency room if not voiding in 8 hours.
== END 2024-09-25 10:00 | disposition home or self-care (01) ==
LOC: OR 06:08
PROVIDERS: PCP Family Medicine; Visit Provider Orthopaedic Surgery Sports Medicine
PROC: (CPT 29870; principal; 2024-09-25 07:15)
DX: S83.231A Complex tear of medial meniscus, current injury, right knee, initial encounter (principal)
CPT/HCPCS: 29881; 01400; J0690; J2250; J2704; J2795; J7120